=== PATIENT | female | born 1990 | race Caucasian/White ===

== ENCOUNTER 2017-01-03 14:31 | Emergency (ER) | payer BC ==
--- NOTE | 2017-01-03 16:13 | REP ---
CT ORBITS WITHOUT CONTRAST: HISTORY: Injury. The globes, optic nerves and rectus muscles are normal in appearance. There is no orbital lesion. The visualized sinuses are clear. There is no fracture. Preseptal soft tissue swelling is present on the left. IMPRESSION: There is no orbital lesion. Signed by Deni Ray MD 01/03/2017 04:14 P
--- NOTE | 2017-01-03 16:27 | EDDOCDS ---
Nurse's Notes [facility] Name: Jodi Lane Age: 26 yrs Sex: Female : 1990 Arrival Date: 01/03/2017 Time: 14:31 Bed PR1 / Private MD: Diagnosis: Contusion of scalp-LEFT FACE, NO ORBITAL FRACTURE;Abrasion of scalp-OVER LEFT ANABAPTISM Presentation: 01/03 14:37 Presenting complaint: Patient states: 2 days fell while decorating apartment and fell srm hitting left side of face/eye on coffee table. swelling worsened under eye. ecchymosis to under and inner corner of eye abrasion to outer aspect left eye. no vision changes in eye. Mechanism of Injury: Fall on to a coffee table corner. The patient denies any loss of vision. Adult Sepsis Screening: The patient does not have new or worsening altered mentation. Patient's respiratory rate is less than 22. Systolic blood pressure is greater than 100. Patient has a qSOFA score of 0- Negative Sepsis Screen. Suicide/Homicide risk assessment- the patient denies having any suicidal and/or homicidal ideations and does not present with any other emotional, behavioral or mental health complaints. 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 Transition of care:. Transition of care: Patient was received from [facility]. 14:37 Acuity: MELISSA Level 4 [facility] 14:37 Method Of Arrival: Walkin/Carried/Asstd [facility] Triage Assessment: 14:39 General: Appears in no apparent distress, Behavior is appropriate for age, cooperative. srm Pain: Pain currently is 4 out of 10 on a pain scale. EENT: swelling under left eye and upper eye lid. pt is able to open eye without difficulty. echhymosis to under eye and inner corner. abrasion to outer aspect left eye. 14:39 Pt Declines HIV testing. 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 none - PMHx: none; - PSHx: none; - Social history: Smoking status: Patient uses tobacco products, current every day smoker. No barriers to communication noted, The patient speaks fluent German, Speaks appropriately for age. - Family history: Not pertinent. - : The pt / caregiver states he / she is not on anticoagulants. Home medication list is obtained from the patient. - Exposure Risk Screening:: None identified. Screenin:24 Screening information is obtained from the patient. Fall risk: No risks identified. srm Assistance ADL's: requires no assistance with activities of daily living. Abuse/DV Screen: The patient / caregiver reports he/she is: not in a situation that causes fear, pain or injury. Nutritional screening: No deficits noted. Advance Directives: There is no active DNR order. home support is adequate. Assessment: 16:24 Reassessment: Patient appears in no apparent distress at this time. srm Vital Signs: 14:32 BP 151 / 88; Pulse 84; Resp 16; Temp 98.4(O); Pulse Ox 100% on R/A; Weight 63.5 kg (R); lr2 Height 5 ft. 2 in. (157.48 cm) (R); Pain 4/10; 16:24 BP 131 / 88; Pulse 76; Resp 18; Temp 98.7; Pulse Ox 99% ; Pain 4/10; srm 14:32 Body Mass Index 25.61 (63.50 kg, 157.48 cm) lr2 Vitals: 14:32 Log In Time: January 03, 2017 at 14:31. lr2 ED Course: 14:32 Patient visited by Annette Long. lr2 14:32 Patient moved to Waiting lr2 14:34 Patient moved to Pre RCE lr2 14:39 Triage Initiated srm 14:42 [facility] dt4 14:42 Leeroy Shipman MD is Attending Physician. dt4 14:42 Patient moved to Triage 2 srm 14:43 Patient visited by Radha Weiner PA-C. dt4 15:06 [facility] Payment Agreement was scanned into [employer] and attached to record. lg 15:10 Patient moved to TR1 srm 16:13 [facility] is Referral Physician. dt4 16:15 Patient moved to PR1 / 25 srm 16:24 The patient / caregiver is instructed regarding the plan of care and ED course. srm Accompanied by Family Member, Patient has correct armband on for positive identification. 16:24 No IV's were initiated during this patient's visit. No procedures done that require srm assistance. Order Results: There are currently no results for this order. Outcome: 16:15 Discharge ordered by Provider. dt4 16:24 Discharge Assessment: Patient awake, alert and oriented x 3. No cognitive and/or srm functional deficits noted. Patient verbalized understanding of disposition instructions. patient administered narcotics - no. The following High Risk Discharge criteria are identified: None. Discharged to home ambulatory, with parent. Condition: good Condition: stable. Discharge instructions given to patient, Instructed on discharge instructions, follow up and referral plans. medication usage, Demonstrated understanding of instructions, medications, Pt was receptive of discharge instructions/ teaching. Prescriptions given X 2. CT Study completed. Property sent home with patient. 16:26 Patient left the ED. srm Signatures: Lizzie Toribio, RN RN srm Carlo Mcadams Reg Reg lg Tschudi, Diane, DOMINGO PA-Panda dt4 Annette Long lr2 Corrections: (The following items were deleted from the chart) 16:25 16:24 BP 131 / 88; Pulse 76bpm; Resp 18bpm; Pulse Ox 99%; Temp 98.7F; srm srm MTDD
--- NOTE | 2017-01-03 16:27 | EDDOCDS ---
Physician Documentation [facility] Name: Jodi Lane Age: 26 yrs Sex: Female : 1990 Arrival Date: 01/03/2017 Time: 14:31 Bed PR Private MD: Disposition: 01/03/17 16:15 Discharged to Home/Self Care. Impression: Contusion of scalp - LEFT FACE, NO ORBITAL FRACTURE, Abrasion of scalp - OVER LEFT BAPTIST. - Condition is Stable. - Discharge Instructions: Abrasion, Facial or Scalp Contusion. - Prescriptions for Naprosyn 500 mg Oral Tablet - take 1 tablet by ORAL route every 12 hours As needed take with food; 30 tablet. Ultram 50 mg Oral Tablet - take 1 tablet by ORAL route every 6 hours As needed MDD: 4 tabs; MAY CAUSE DROWSINESS. 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 - Medication Reconciliation, Local Pharmacy Hours form. - Follow up: Emergency Department; When: As needed; Reason: Worsening of conditions. [facility]: [facility]; When: Call to arrange an appointment; Reason: Recheck today's complaints, Continuance of care, To establish care. - Problem is new. - Symptoms are unchanged. - Notes: THERE WAS NO SIGN OF FRACTURE ON YOUR CT SCAN TODAY. TAKE THE PAIN MEDICATION DIRECTED, NEEDED. RETURN TO THE ER WITH ANY WORSENING SYMPTOMS. Historical: - Allergies: no known allergies; - Home Meds: 1. none - PMHx: none; - PSHx: none; - Social history: Smoking status: Patient uses tobacco products, current every day smoker. No barriers to communication noted, The patient speaks fluent Maori, Speaks appropriately for age. - Family history: Not pertinent. - : The pt / caregiver states he / she is not on anticoagulants. Home medication list is obtained from the patient. - Exposure Risk Screening:: None identified. 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 2 in. (157.48 cm) (R); Pain 4/10; 16:24 BP 131 / 88; Pulse 76; Resp 18; Temp 98.7; Pulse Ox 99% ; Pain 4/10; srm 14:32 Body Mass Index 25.61 (63.50 kg, 157.48 cm) lr2 MDM: 14:52 Financial registration complete. 15:02 CT Orbit Without Contrast Ordered. EDMS 15:06 [facility] Payment Agreement was scanned into [employer] and attached to record. lg Signatures: Dispatcher [employer] EDCT Lizzie Toribio RN RN srm Carlo Mcadams, Reg Reg lg Radha Weiner, DOMINGO LANE dt4 The chart was reviewed and I authenticate all verbal orders and agree with the evaluation and treatment provided.Attachments: 15:06 [facility] [place] lg MTDD
--- NOTE | 2017-01-05 17:27 | EDDOCDS ---
Physician Documentation [facility] Name: Jodi Lane Age: 26 yrs Sex: Female : 1990 Arrival Date: 01/03/2017 Time: 14:31 Bed PR Private MD: Disposition: 01/03/17 16:15 Discharged to Home/Self Care. Impression: Contusion of scalp - LEFT FACE, NO ORBITAL FRACTURE, Abrasion of scalp - OVER LEFT PRESYBETERIAN. - Condition is Stable. - Discharge Instructions: Abrasion, Facial or Scalp Contusion. - Prescriptions for Naprosyn 500 mg Oral Tablet - take 1 tablet by ORAL route every 12 hours As needed take with food; 30 tablet. Ultram 50 mg Oral Tablet - take 1 tablet by ORAL route every 6 hours As needed MDD: 4 tabs; MAY CAUSE DROWSINESS. 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 - Medication Reconciliation, Local Pharmacy Hours form. - Follow up: Emergency Department; When: As needed; Reason: Worsening of conditions. Follow [facility]: [facility]; When: Call to arrange an appointment; Reason: Recheck today's complaints, Continuance of care, To establish care. - Problem is new. - Symptoms are unchanged. - Notes: THERE WAS NO SIGN OF FRACTURE ON YOUR CT SCAN TODAY. TAKE THE PAIN MEDICATION DIRECTED, NEEDED. RETURN TO THE ER WITH ANY WORSENING SYMPTOMS. Historical: - Allergies: no known allergies; - Home Meds: 1. none - PMHx: none; - PSHx: none; - Social history: Smoking status: Patient uses tobacco products, current every day smoker. No barriers to communication noted, The patient speaks fluent Malay, Speaks appropriately for age. - Family history: Not pertinent. - : The pt / caregiver states he / she is not on anticoagulants. Home medication list is obtained from the patient. - Exposure Risk Screening:: None identified. 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 2 in. (157.48 cm) (R); Pain 4/10; 16:24 BP 131 / 88; Pulse 76; Resp 18; Temp 98.7; Pulse Ox 99% ; Pain 4/10; srm 14:32 Body Mass Index 25.61 (63.50 kg, 157.48 cm) lr2 MDM: 14:52 Financial registration complete. lg 15:02 CT Orbit Without Contrast Ordered. EDMS 15:06 [facility] Payment Agreement was scanned into [employer] and attached to record. lg 21:51 T-Sheet-- Draft Copy was scanned into [employer] and attached to record. klr Signatures: Dispatcher [employer] EDSC Lizzie Toribio RN RN srm Abbe, Carlo, Reg Reg Radha Weiner PA-C PA-C dt4 Redder, Kathie klr The chart was reviewed and I authenticate all verbal orders and agree with the evaluation and treatment provided.Attachments: 15:06 [facility] Payment Agreement lg 21:51 T-Sheet-- Draft Copy klr Chart Complete MTDD
--- NOTE | 2017-01-05 17:27 | EDDOCDS ---
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 swelling worsened under eye. ecchymosis to under and inner corner of eye abrasion to outer aspect left eye. no vision changes in eye. Mechanism of Injury: Fall on to a coffee table corner. The patient denies any loss of vision. Adult Sepsis Screening: The patient does not have new or worsening altered mentation. Patient's respiratory rate is less than 22. Systolic blood pressure is greater than 100. Patient has a qSOFA score of 0- Negative Sepsis Screen. Suicide/Homicide risk assessment- the patient denies having any suicidal and/or homicidal ideations and does not present with any other emotional, behavioral or mental health complaints. Status: Patient is not a social services designee or dependent. Transition of care:. Transition of care: Patient was received from [facility]. 14:37 Acuity: MELISSA Level 4 [facility] 14:37 Method Of Arrival: Walkin/Carried/Asstd [facility] Triage Assessment: 14:39 General: Appears in no apparent distress, Behavior is appropriate for age, cooperative. srm Pain: Pain currently is 4 out of 10 on a pain scale. EENT: swelling under left eye and upper eye lid. pt is able to open eye without difficulty. echhymosis to under eye and inner corner. abrasion to outer aspect left eye. 14:39 Pt Declines HIV testing. 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 none - PMHx: none; - PSHx: none; - Social history: Smoking status: Patient uses tobacco products, current every day smoker. No barriers to communication noted, The patient speaks fluent Polish, Speaks appropriately for age. - Family history: Not pertinent. - : The pt / caregiver states he / she is not on anticoagulants. Home medication list is obtained from the patient. - Exposure Risk Screening:: None identified. Screenin:24 Screening information is obtained from the patient. Fall risk: No risks identified. srm Assistance ADL's: requires no assistance with activities of daily living. Abuse/DV Screen: The patient / caregiver reports he/she is: not in a situation that causes fear, pain or injury. Nutritional screening: No deficits noted. Advance Directives: There is no active DNR order. home support is adequate. Assessment: 16:24 Reassessment: Patient appears in no apparent distress at this time. srm Vital Signs: 14:32 BP 151 / 88; Pulse 84; Resp 16; Temp 98.4(O); Pulse Ox 100% on R/A; Weight 63.5 kg (R); lr2 Height 5 ft. 2 in. (157.48 cm) (R); Pain 4/10; 16:24 BP 131 / 88; Pulse 76; Resp 18; Temp 98.7; Pulse Ox 99% ; Pain 4/10; srm 14:32 Body Mass Index 25.61 (63.50 kg, 157.48 cm) lr2 Vitals: 14:32 Log In Time: January 03, 2017 at 14:31. lr2 ED Course: 14:32 Patient visited by Annette Long. lr2 14:32 Patient moved to Waiting lr2 14:34 Patient moved to Pre RCE lr2 14:39 Triage Initiated srm 14:42 [facility]iner [facility] dt4 14:42 Leeroy Shipman MD is Attending Physician. dt4 14:42 Patient moved to Triage 2 srm 14:43 Patient visited by Radha Weiner PA-C. dt4 15:06 [facility] Payment Agreement was scanned into [employer] and attached to record. lg 15:10 Patient moved to TR1 srm 16:13 [facility] is Referral Physician. dt4 16:15 Patient moved to PR1 / 25 srm 16:24 The patient / caregiver is instructed regarding the plan of care and ED course. srm Accompanied by Family Member, Patient has correct armband on for positive identification. 16:24 No IV's were initiated during this patient's visit. No procedures done that require srm assistance. 16:47 CT Orbit Without Contrast Returned. EDMS 21:51 T-Sheet-- Draft Copy was scanned into [employer] and attached to record. klr Order Results: Radiology Order: CT Orbit Without Contrast Test: CT Orbit Without Contrast REASON FOR EXAMINATION: ?LEFT ORBIT INJURY; CT ORBITS WITHOUT CONTRAST:; ; HISTORY: Injury.; ; The globes, optic nerves and rectus muscles are normal in appearance. There is no; orbital lesion. The visualized sinuses are clear. There is no fracture. Preseptal; soft tissue swelling is present on the left.; ; IMPRESSION:; ; There is no orbital lesion.; ; ; Signed by; Deni Ray MD 01/03/2017 04:14 P; Outcome: 16:15 Discharge ordered by Provider. dt4 16:24 Discharge Assessment: Patient awake, alert and oriented x 3. No cognitive and/or srm functional deficits noted. Patient verbalized understanding of disposition instructions. patient administered narcotics - no. The following High Risk Discharge criteria are identified: None. Discharged to home ambulatory, with parent. Condition: good Condition: stable. Discharge instructions given to patient, Instructed on discharge instructions, follow up and referral plans. medication usage, Demonstrated understanding of instructions, medications, Pt was receptive of discharge instructions/ teaching. Prescriptions given X 2. CT Study completed. Property sent home with patient. 16:26 Patient left the ED. srm Signatures: Dispatcher [facility] EDMT Lizzie Toribio RN RN srm Carlo Mcadams, Reg Reg lg Radha Weiner, DOMINGO PAEloisa dt4 Adilene Jorge Laura lr2 Corrections: (The following items were deleted from the chart) 16:25 16:24 BP 131 / 88; Pulse 76bpm; Resp 18bpm; Pulse Ox 99%; Temp 98.7F; srm srm Chart Complete MTDD
--- NOTE | 2017-01-05 17:27 | EDDOCDS ---
Physician Documentation [facility] Name: Jodi Lane Age: 26 yrs Sex: Female : 1990 Arrival Date: 01/03/2017 Time: 14:31 Bed PR Private MD: Disposition: 01/03/17 16:15 Discharged to Home/Self Care. Impression: Contusion of scalp - LEFT FACE, NO ORBITAL FRACTURE, Abrasion of scalp - OVER LEFT HOLINESS. - Condition is Stable. - Discharge Instructions: Abrasion, Facial or Scalp Contusion. - Prescriptions for Naprosyn 500 mg Oral Tablet - take 1 tablet by ORAL route every 12 hours As needed take with food; 30 tablet. Ultram 50 mg Oral Tablet - take 1 tablet by ORAL route every 6 hours As needed MDD: 4 tabs; MAY CAUSE DROWSINESS. 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 - Medication Reconciliation, Local Pharmacy Hours form. - Follow up: Emergency Department; When: As needed; Reason: Worsening of conditions. Follow [facility]: [facility]; When: Call to arrange an appointment; Reason: Recheck today's complaints, Continuance of care, To establish care. - Problem is new. - Symptoms are unchanged. - Notes: THERE WAS NO SIGN OF FRACTURE ON YOUR CT SCAN TODAY. TAKE THE PAIN MEDICATION DIRECTED, NEEDED. RETURN TO THE ER WITH ANY WORSENING SYMPTOMS. Historical: - Allergies: no known allergies; - Home Meds: 1. none - PMHx: none; - PSHx: none; - Social history: Smoking status: Patient uses tobacco products, current every day smoker. No barriers to communication noted, The patient speaks fluent Albanian, Speaks appropriately for age. - Family history: Not pertinent. - : The pt / caregiver states he / she is not on anticoagulants. Home medication list is obtained from the patient. - Exposure Risk Screening:: None identified. 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 2 in. (157.48 cm) (R); Pain 4/10; 16:24 BP 131 / 88; Pulse 76; Resp 18; Temp 98.7; Pulse Ox 99% ; Pain 4/10; srm 14:32 Body Mass Index 25.61 (63.50 kg, 157.48 cm) lr2 MDM: 14:52 Financial registration complete. lg 15:02 CT Orbit Without Contrast Ordered. EDMS 15:06 [facility] Payment Agreement was scanned into [employer] and attached to record. lg 21:51 T-Sheet-- Draft Copy was scanned into [employer] and attached to record. klr Signatures: Dispatcher [employer] EDMI Lizzie Toribio RN RN srm Abbe, Carlo, Reg Reg Radha Weiner PA-C PA-C dt4 Redder, Kathie klr The chart was reviewed and I authenticate all verbal orders and agree with the evaluation and treatment provided.Attachments: 15:06 [facility] Payment Agreement lg 21:51 T-Sheet-- Draft Copy klr Chart Complete MTDD
== END 2017-01-03 16:26 | disposition home or self-care (01) ==
LOC: M ED 14:31
DX: S00.81XA Abrasion of other part of head, initial encounter (principal); S00.83XA Contusion of other part of head, initial encounter; W18.09XA Striking against other object with subsequent fall, initial encounter; Y92.019 Unspecified place in single-family (private) house as the place of occurrence of the external cause; Y93.89 Activity, other specified; Y99.8 Other external cause status; F17.200 Nicotine dependence, unspecified, uncomplicated